=== PATIENT | female | born 1975 | race Caucasian/White ===

== ENCOUNTER 2019-05-27 16:14 | Emergency (ER) | payer MEDICAID, SELFPAY ==
[2019-05-27 16:23] VITALS: BP 144/93; PULSE 99; RESP 18; TEMP 36.2; O2SAT 96
--- NOTE | 2019-05-27 19:46 | ED.ANXIETY ---
HPI - Anxiety <AXEL Gallagher - Last Filed: 05/27/19 22:25> General Chief Complaint: Anxiety Stated Complaint: states blood pressure is high,under stress Time Seen by Provider: 05/27/19 19:35 Source: patient Mode of arrival: Ambulatory History of Present Illness HPI narrative: 43-year-old female presents to the the emergency department complaining of sudden onset of anxiety, shortness of breath and increased heart rate. Patient states this happened about a week ago. She states she has in her written episodes of summer feelings throughout the week. She reports it feels like her heart rate is beating faster when she walks around. Patient states she took her blood pressure in [place] and noticed that it was 141/99 and heart rate of 115 today. She has history of anxiety but has not had worsening symptoms for few years. She denies a history of any panic attacks. Patient denies history of asthma, blood clots, recent long trips, or ever needing to take blood thinners. Patient denies abdominal pain, nausea, vomiting, diarrhea, chest pain, dizziness, vision changes, or other concerns. Related Data Home Medications Medication Instructions Recorded Confirmed gabapentin 400 mg PO TID 05/27/19 05/27/19 ibuprofen 600 mg PO TID 05/27/19 05/27/19 omeprazole 20 mg PO DAILY 05/27/19 05/27/19 quetiapine 100 mg PO BEDTIME 05/27/19 05/27/19 Previous Rx's Medication Instructions Recorded hydroxyzine HCl 25 mg PO QID PRN #30 tab 05/27/19 Allergies Allergy/AdvReac Type Severity Reaction Status Date / Time No Known Drug Allergies Allergy Verified 05/27/19 16:29 Review of Systems <AXEL Gallagher - Last Filed: 05/27/19 22:25> Review of Systems Narrative: REVIEW OF SYSTEMS: GENERAL: Denies fever or chills. HENT: No head trauma, hearing loss or sore throat. EYES: No loss of vision, double vision, eye pain, or irritation. CARDIOVASCULAR: Complains of palpitations, see HPI. RESPIRATORY: Complains of shortness of breath, see HPI. GASTROINTESTINAL: No nausea, vomiting, diarrhea, or constipation. GENITOURINARY: No flank pain or dysuria. MUSCULOSKELETAL: No pain, weakness, or deformities. INTEGUMENTARY: No rash, lesions, or pruritus. NEURO: No numbness, tingling, memory loss, or confusion. PSYCH: No behavior or mood changes. Patient History <AXEL Gallagher - Last Filed: 05/27/19 22:25> Medical History Anxiety (Acute) Social History Smoking Status: Current every day smoker Smoking Status: Current every day smoker tobacco type: cigarettes alcohol intake frequency: 0-2 drinks per day Substance Use Type: does not use Exam <AXEL Gallagher - Last Filed: 05/27/19 22:25> Initial Vital Signs Initial Vital Signs: Vital Signs Temperature 97.1 F L 05/27/19 16:23 Pulse Rate 99 H 05/27/19 16:23 Respiratory Rate 18 05/27/19 16:23 Blood Pressure 144/93 H 05/27/19 16:23 Pulse Oximetry 96 05/27/19 16:23 PHYSICAL EXAMINATION: GENERAL: Well groomed, alert, and cooperative. Answers questions promptly and appropriately. Vital signs noted. HENT: Normocephalic, atraumatic. Ear canals patent. Oral mucosa is pink and moist. EYES: Conjunctiva pink, sclera white, no periorbital swelling. CHEST: Normal to inspection and without deformities. CARDIOVASCULAR: S1 and S2 sounds normal. Regular rate and rhythm, no murmurs, clicks, or bruits. No pedal edema. RESPIRATORY: Normal respiratory rate, trachea midline, airway patent. No stridor, nasal flaring or accessory muscle use. Lungs are clear in all benitez without wheeze, rhonchi, or crackles. No cough exhibited. GASTROINTESTINAL: Bowel sounds normoactive. Abdomen is soft and non-tender. No organomegaly. MUSCULOSKELETAL: Normal gait and coordination. Equal tone and mass bilaterally. EXTREMITIES: CMS intact. Moves all extremities. SKIN: Warm, dry, soft, appropriate color for ethnicity. No lesions, rashes, or wounds. NEURO: Alert and Oriented X 3. Good coordination. No ataxia, or sensory deficits, or cognitive issues. PSYCH: Patient did not appear especially anxious during exam. <Cami Myrick DO - Last Filed: 05/28/19 06:03> Initial Vital Signs Initial Vital Signs: Vital Signs Temperature 97.1 F L 05/27/19 16:23 Pulse Rate 99 H 05/27/19 16:23 Respiratory Rate 18 05/27/19 16:23 Blood Pressure 144/93 H 05/27/19 16:23 Pulse Oximetry 96 05/27/19 16:23 Course <AXEL Gallagher - Last Filed: 05/27/19 22:25> Course Course Narrative: Patient initially had a heart rate of 105 and had a oxygen saturation of 90% during examination. There was increased concern for pulmonary embolism. After administration of fluids, patient's heart rate decreased to 95, patient was able to ambulate around the room with an oxygen saturation of 96% before discharge. Patient states she was feeling much better after administration of fluids. We discussed return precautions in extensive detail. Patient was given hydroxyzine, she was encouraged to follow up with her primary care provider for discussion of further management of anxiety. Orders Ordered: Discontinued Medications Sodium Chloride (Normal Saline 0.9%) 1,000 mls @ 1,000 mls/hr IV BOLUS ONE Stop: 05/27/19 20:46 Last Infusion: 05/27/19 22:12 Dose: 0 mls/hr Documented by: Admin: 05/27/19 20:53 Dose: 1,000 mls/hr Documented by: PARISH Consultations Consultation #1: Patient staffed with Dr. Myrick Vital Signs Vital signs: Vital Signs - 8 hr 05/27/19 22:12 Pulse Rate 95 H Respiratory Rate 26 H Blood Pressure [Left Arm] 133/91 H <Cami Myrick DO - Last Filed: 05/28/19 06:03> Orders Ordered: Discontinued Medications Sodium Chloride (Normal Saline 0.9%) 1,000 mls @ 1,000 mls/hr IV BOLUS ONE Stop: 05/27/19 20:46 Last Infusion: 05/27/19 22:12 Dose: 0 mls/hr Documented by: Admin: 05/27/19 20:53 Dose: 1,000 mls/hr Documented by: PARISH Vital Signs Vital signs: Vital Signs - 8 hr 05/27/19 22:12 Pulse Rate 95 H Respiratory Rate 26 H Blood Pressure [Left Arm] 133/91 H MDM - Anxiety <Ora LopezAXEL - Last Filed: 05/27/19 22:25> Medical Records Attestation: I reviewed the patient's medical records. Lab Data Attestation: I reviewed the patient's lab results. Result diagrams: 05/27/19 20:12 05/27/19 20:12 Labs: Lab Results 05/27/19 05/27/19 Range/Units 20:12 20:12 WBC 9.4 (4.5-11.0) X10^3/uL RBC 4.98 (4.0-5.2) X10^6/uL Hgb 12.9 (12.0-16.0) g/dL Hct 38.7 (36-46) % MCV 77.7 L (80-100) fL MCH 26.0 (26-34) PG MCHC 33.4 (30-36) % RDW 14.2 (11.6-14.8) % Plt Count 246 (150-400) X10^3/uL Neut % (Auto) 59.1 (50-75) % Lymph % (Auto) 31.3 (25-40) % Perry % (Auto) 5.8 (3-14) % Eos % (Auto) 3.0 (2-4) % Baso % (Auto) 0.8 (0-2) % Neut # (Auto) 5600 (6211-8519) /uL Lymph # (Auto) 3000 (9383-0042) /uL Perry # (Auto) 500 (0-900) /uL Eos # (Auto) 300 (0-450) /uL Baso # (Auto) 100 (0-100) /uL Sodium 136 L (137-145) mmol/L Potassium 4.3 (3.4-5.1) mmol/L Chloride 99 (98-107) mmol/L Carbon Dioxide 27 (22-32) mmol/L BUN 15 (7-17) mg/dL Creatinine 0.60 (0.52-1.04) mg/dL Estimated GFR > 60.0 (>60) mL/min BUN/Creatinine Ratio 25.0 H (6-22) Glucose 86 (70-100) mg/dL Calcium 9.3 (8.4-10.2) mg/dL Total Bilirubin 0.5 (0.2-1.3) mg/dL AST 29 (14-36) IU/L ALT 17 (<35) IU/L Alkaline Phosphatase 116 (38-126) U/L Total Creatine Kinase 56 (30-135) U/L CK-MB (CK-2) TNP CK-MB (CK-2) Rel Index TNP Troponin I < 0.012 (0.01-0.034) ng/mL Total Protein 8.5 H (6.3-8.2) g/dL Albumin 4.5 (3.5-5.0) g/dL Globulin 4.0 (1.7-4.1) g/dL Albumin/Globulin Ratio 1.1 (1.0-2.8) Urine Dip Bedside Urine Glucose Negative Bedside Urine Bilirubin - Negative Bedside Urine Ketone - Negative Urine Specific Norphlet 1.025 Bedside Urine Occult Blood - Negative Bedside Urine pH 6.0 Bedside Urine Protein +/- 15 Bedside Urine Urobilinogen - Negative Bedside Urine Nitrite - Negative Bedside Urine Leukocytes - Negative Esterase Imaging Data CTA: Radiologist's Impression: [address] [address] [address] Scan Report Signed Patient: Ashli Serrano [facility]#: [id number] : 1975Acct:[id number] Age/Sex: 43 / FDate of Service: 05/27/19 Loc: ED Accession Number: [id number] Procedure: CT angio chest PE protocol Ordering Provider: Ora Lopez PROCEDURE: CT ANGIO CHEST PE PROTOCOL INDICATIONS: r/o PE, SOB, low sat, tachycardia TECHNIQUE: After the administration of intravenous contrast, 2 mm thick sections acquired from the pulmonary apices to the posterior costophrenic angles. 3-dimensional maximum intensity projection (MIP) coronal and sagittal reformats were then acquired through the thorax. For radiation dose reduction, the following was used: automated exposure control, adjustment of mA and/or kV according to patient size. COMPARISON: [facility], CR, XR CHEST 1V, 05/27/2019, 19:59. FINDINGS: Image quality: Good. Pulmonary arteries: Pulmonary arteries are normal in size, and demonstrate no intraluminal filling defects to suggest central pulmonary embolism. Lungs and pleura: Minimal dependent ground glass opacity which has the appearance of atelectasis. No pleural effusions or pneumothorax. Central and peripheral airways are patent. Mediastinum: Heart size is normal, without pericardial effusion. No mediastinal or hilar adenopathy. Thoracic aorta is normal in caliber and enhancement. Esophagus is normal in caliber, without hiatal hernia. Bones and chest wall: No suspicious bony lesions. Ribs and thoracic spine appear intact throughout. Thyroid gland is unremarkable. No axillary or supraclavicular adenopathy. Abdomen: Visualized upper abdominal solid organs appear normal in the early arterial phase of enhancement. Spleen appears prominent. IMPRESSION: 1. No central pulmonary embolism. 2. No significant acute airspace opacity. Dictated by: Colby Mcpherson M.D. on 05/27/2019 at 21:45 Approved by: Colby Mcpherson M.D. on 05/27/2019 at 21:50 Chest x-ray: Radiologist's Impression: [address] [place] [id number] XRay Report Signed Patient: Ashli Serrano [facility]#: [id number] : 1975Acct:[id number] Age/Sex: 43 / FDate of Service: 05/27/19 Loc: ED Accession Number: [id number] Procedure: XR chest 1V Ordering Provider: Ora Lopez PROCEDURE: XR CHEST 1V INDICATIONS: SOB TECHNIQUE: One view of the chest was acquired. COMPARISON: None. FINDINGS: Surgical changes and devices: None. Lungs and pleura: Lungs are clear. No pleural effusions or pneumothorax. Mediastinum: Mediastinal contours appear normal. Heart size is normal. Bones and chest wall: No suspicious bony lesions. Overlying soft tissues appear unremarkable. IMPRESSION: No acute cardiopulmonary abnormality. Dictated by: Colby Mcpherson M.D. on 05/27/2019 at 20:38 Approved by: Colby Mcpherson M.D. on 05/27/2019 at 20:40 ECG Data Interpretation: EKG given to Dr. Mims per protocol. Sinus rhythm a a, rate under, W[place] interval 133, QTC 427. No ST elevation or ST depression. No T-wave abnormality. No ectopy. MDM Narrative Medical decision making narrative: 43-year-old female presents to the emergency department complaining of increased heart rate, palpitation, and shortness of breath. Patient has a history of anxiety but has not had any panic attacks, she reports that this has started suddenly. However, she also states she has been under lot of stress lately. Differential included PE due to episodes of tachycardia and low oxygen saturation, however, this is less likely due to low risk factors in history and negative CT angio, as well as improved symptoms after her stay in the emergency department. Less likely cardiac etiology due to normal EKG, negative troponin, and x-ray without any acute changes. Less likely infectious etiology due to lack of systemic symptoms such as fever or cough, additionally, patient had a negative x-ray and negative CT. Differential also includes anxiety, this you we need to do is most likely due to negative workup and resolution of symptoms. Strict return precautions given and follow-up instructions discussed. Patient agreed to plan of care verbalized understanding. <Cami Myrick, - Last Filed: 05/28/19 06:03> Lab Data Attestation: I reviewed the patient's lab results. Labs: Lab Results 05/27/19 05/27/19 Range/Units 20:12 20:12 WBC 9.4 (4.5-11.0) X10^3/uL RBC 4.98 (4.0-5.2) X10^6/uL Hgb 12.9 (12.0-16.0) g/dL Hct 38.7 (36-46) % MCV 77.7 L (80-100) fL MCH 26.0 (26-34) PG MCHC 33.4 (30-36) % RDW 14.2 (11.6-14.8) % Plt Count 246 (150-400) X10^3/uL Neut % (Auto) 59.1 (50-75) % Lymph % (Auto) 31.3 (25-40) % Perry % (Auto) 5.8 (3-14) % Eos % (Auto) 3.0 (2-4) % Baso % (Auto) 0.8 (0-2) % Neut # (Auto) 5600 (7846-2831) /uL Lymph # (Auto) 3000 (3768-6144) /uL Perry # (Auto) 500 (0-900) /uL Eos # (Auto) 300 (0-450) /uL Baso # (Auto) 100 (0-100) /uL Sodium 136 L (137-145) mmol/L Potassium 4.3 (3.4-5.1) mmol/L Chloride 99 (98-107) mmol/L Carbon Dioxide 27 (22-32) mmol/L BUN 15 (7-17) mg/dL Creatinine 0.60 (0.52-1.04) mg/dL Estimated GFR > 60.0 (>60) mL/min BUN/Creatinine Ratio 25.0 H (6-22) Glucose 86 (70-100) mg/dL Calcium 9.3 (8.4-10.2) mg/dL Total Bilirubin 0.5 (0.2-1.3) mg/dL AST 29 (14-36) IU/L ALT 17 (<35) IU/L Alkaline Phosphatase 116 (38-126) U/L Total Creatine Kinase 56 (30-135) U/L CK-MB (CK-2) TNP CK-MB (CK-2) Rel Index TNP Troponin I < 0.012 (0.01-0.034) ng/mL Total Protein 8.5 H (6.3-8.2) g/dL Albumin 4.5 (3.5-5.0) g/dL Globulin 4.0 (1.7-4.1) g/dL Albumin/Globulin Ratio 1.1 (1.0-2.8) Urine Dip Bedside Urine Glucose Negative Bedside Urine Bilirubin - Negative Bedside Urine Ketone - Negative Urine Specific Norphlet 1.025 Bedside Urine Occult Blood - Negative Bedside Urine pH 6.0 Bedside Urine Protein +/- 15 Bedside Urine Urobilinogen - Negative Bedside Urine Nitrite - Negative Bedside Urine Leukocytes - Negative Esterase MDM Narrative Medical decision making narrative: Discharge Plan Departure Patient Disposition: Home Clinical Impression: Acute anxiety, Heart palpitations Discharge Date/Time: 05/27/19 22:19 Instructions: DI for Anxiety -- Adult Activity Restrictions/Additional Instructions: Thank you for entrusting me with your care today. As discussed, your x-ray and CT is negative for pneumonia or blood clots. Your laboratory work is within normal limits. Your symptoms are most likely caused by anxiety. I have given you a medication called hydroxyzine this will help with acute anxiety attacks. However, this will make you sleepy so do not drive with this medication. Follow up with your primary care provider in 1-2 weeks for further discussion about long-term management of anxiety. I recommend having an outlet for your anxiety such as exercise, crusting, or knitting, or etc. As well as establishing a therapist. Return to the emergency department for any new or worsening symptoms. Prescriptions: New hydroxyzine HCl 25 mg tablet 25 mg PO QID PRN (Reason: anxiety) Qty: 30 RF: 0 No Action gabapentin 400 mg Capsule 400 mg PO TID RF: 0 omeprazole 20 mg Capsule,Delayed Release(Dr/Ec) 20 mg PO DAILY RF: 0 quetiapine 100 mg Tablet 100 mg PO BEDTIME RF: 0 ibuprofen 600 mg Tablet 600 mg PO TID RF: 0 Referrals: Rosalva Smalls MD [Primary Care Provider] -
--- NOTE | 2019-05-27 20:16 | DI.CT.S_ITS ---
PROCEDURE: CT ANGIO CHEST PE PROTOCOL INDICATIONS: r/o PE, SOB, low sat, tachycardia TECHNIQUE: After the administration of intravenous contrast, 2 mm thick sections acquired from the pulmonary apices to the posterior costophrenic angles. 3-dimensional maximum intensity projection (MIP) coronal and sagittal reformats were then acquired through the thorax. For radiation dose reduction, the following was used: automated exposure control, adjustment of mA and/or kV according to patient size. COMPARISON: [facility], CR, XR CHEST 1V, 05/27/2019, 19:59. FINDINGS: Image quality: Good. Pulmonary arteries: Pulmonary arteries are normal in size, and demonstrate no intraluminal filling defects to suggest central pulmonary embolism. Lungs and pleura: Minimal dependent ground glass opacity which has the appearance of atelectasis. No pleural effusions or pneumothorax. Central and peripheral airways are patent. Mediastinum: Heart size is normal, without pericardial effusion. No mediastinal or hilar adenopathy. Thoracic aorta is normal in caliber and enhancement. Esophagus is normal in caliber, without hiatal hernia. Bones and chest wall: No suspicious bony lesions. Ribs and thoracic spine appear intact throughout. Thyroid gland is unremarkable. No axillary or supraclavicular adenopathy. Abdomen: Visualized upper abdominal solid organs appear normal in the early arterial phase of enhancement. Spleen appears prominent. IMPRESSION: 1. No central pulmonary embolism. 2. No significant acute airspace opacity. Dictated by: Colby Mcpherson M.D. on 05/27/2019 at 21:45 Approved by: Colby Mcpherson M.D. on 05/27/2019 at 21:50
[2019-05-27 20:20] LABS: Add Manual Diff / Slide Review NO; Basophils Absolute Auto 100 /uL (0-100); Basophils Percent Auto 0.8 % (0-2); Eosinophils Absolute Auto 300 /uL (0-450); Hematocrit 38.7 % (36-46); Hemoglobin 12.9 g/dL (12.0-16.0); Lymphocytes Absolute Auto 3000 /uL (1100-4500); Lymphocytes Percent Auto 31.3 % (25-40); Mean Corpuscular HGB Conc 33.4 % (30-36); Mean Corpuscular Volume 77.7 fL (80-100); Monocytes Absolute Auto 500 /uL (0-900); Monocytes Percent Auto 5.8 % (3-14); Neutrophils Absolute Auto 5600 /uL (1500-7000); Neutrophils Percent Auto 59.1 % (50-75); Platelet Count 246 X10^3/uL (150-400); Red Blood Cell Count 4.98 X10^6/uL (4.0-5.2); Red Cell Distribution Width 14.2 % (11.6-14.8); White Blood Cell Count 9.4 X10^3/uL (4.5-11.0)
[2019-05-27 20:21] VITALS: BP 117/80; PULSE 101; RESP 18; O2SAT 99
[2019-05-27 20:30] LABS: Alanine Aminotransferase 17 IU/L (<35); Albumin 4.5 g/dL (3.5-5.0); Albumin Globulin Ratio 1.1 (1.0-2.8); Alkaline Phosphatase 116 U/L (38-126); Aspartate Aminotransferase 29 IU/L (14-36); Bilirubin Total 0.5 mg/dL (0.2-1.3); Blood Urea Nitrogen 15 mg/dL (7-17); Calcium 9.3 mg/dL (8.4-10.2); Carbon Dioxide 27 mmol/L (22-32); Chloride 99 mmol/L (98-107); Creatine Kinase 56 U/L (30-135); Estimated Glomerular Filt Rate > 60.0 mL/min (>60); Glucose 86 mg/dL (70-100); Potassium 4.3 mmol/L (3.4-5.1); Sodium 136 mmol/L (137-145); Total Protein 8.5 g/dL (6.3-8.2)
[2019-05-27 20:34] LABS: HEMOLYSIS 77 (0-50)
[2019-05-27 20:42] LABS: Troponin I < 0.012 ng/mL (0.01-0.034)
[2019-05-27] MEDS: SODIUM CHLORIDE 0.9% 1,000 ML 1000 ML IV (20:53)
[2019-05-27 22:12] VITALS: BP 133/91; PULSE 95; RESP 26
== END 2019-05-27 22:19 | disposition home or self-care (01) ==
PROVIDERS: Emergency Provider Nurse Practitioner; PCP Family Medicine
DX: F41.9 Anxiety disorder, unspecified (principal); R00.2 Palpitations; R00.0 Tachycardia, unspecified; R06.02 Shortness of breath
CPT/HCPCS: 36415; 71045; 71275; 80053; 81003; 82550; 84484; 85025; 93005; 96360; 99284; 99285

== ENCOUNTER 2019-11-22 09:29 | Emergency (ER) | payer MEDICAID, SELFPAY ==
[2019-11-22] VITALS (18 sets, daily range): BP systolic 95–110; BP diastolic 54–72; PULSE 92–124; RESP 18–50; TEMP 36.4; O2SAT 92–100
--- NOTE | 2019-11-22 09:43 | DI.RAD.S_ITS ---
PROCEDURE: XR CHEST 1V INDICATIONS: flu-like symptoms TECHNIQUE: One view of the chest was acquired. COMPARISON: [facility], CR, XR CHEST 1V, 05/27/2019, 19:59. FINDINGS: Surgical changes and devices: None. Lungs and pleura: Lungs are clear. No pleural effusions or pneumothorax. Mediastinum: Mediastinal contours appear normal. Heart size is normal. Bones and chest wall: No suspicious bony lesions. Overlying soft tissues appear unremarkable. IMPRESSION: No acute cardiopulmonary disease. Dictated by: Kate Adler M.D. on 11/22/2019 at 10:52 Approved by: Kate Adler M.D. on 11/22/2019 at 10:53
[2019-11-22 10:43] LABS: Lactate (Lactic Acid) 1.4 mmol/L (0.7-2.1)
--- NOTE | 2019-11-22 10:44 | PC.NURSE ---
Complaint as per triage note:Pt is now a/o x 4. BS clear and equal. Denies recent fever / chills but does state she has felt intermittent shortness of breath/ body feeling heavy when she is walking up stairs x 24 hours. c/o body aches that are not normal for her. Denies nausea / vomiting. Dizzyness is resolved after 1 liter of NS fluid. Pt has been in methadone program x 1 year. + smoker 1-2 cigarets / day w/ nicotine patch in place. Nicotine patch has recently been decreased and is not new for her.
--- NOTE | 2019-11-22 10:49 | ED.SOB ---
HPI - SOB/Dyspnea General Chief Complaint: Shortness of Breath/Dyspnea Stated Complaint: Chest Pain Time Seen by Provider: 11/22/19 09:41 Source: patient and EMS Mode of arrival: EMS Limitations: no limitations History of Present Illness HPI Narrative: Patient is a 44-year-old female who presents from the rehab clinc with dizziness lightheadedness and shortness of breath. She says it started last evening she actually felt like her heart was beating in her chest quite a lot. She feels short of breath when she walks she overall has extreme fatigue all over her body and muscle aches. She denies any cough or fever. She was at rehab clinic today when she was found to be dizzy with a systolic blood pressure in the 90s and heart rate in 120, that has improved since she has been in the emergency department and overall her symptoms she says have also improved. She lives in a shared household with 5 other family and is unable to quarantine. Related Data Home Medications Medication Instructions Recorded Confirmed omeprazole 20 mg PO DAILY 05/27/19 11/22/19 quetiapine 100 mg PO BEDTIME 05/27/19 11/22/19 atorvastatin [Lipitor] 20 mg PO DAILY 11/22/19 11/22/19 cyclobenzaprine 10 mg PO TID PRN 11/22/19 11/22/19 gabapentin 800 mg PO TID 11/22/19 11/22/19 ibuprofen 800 mg PO TID PRN 11/22/19 11/22/19 lisinopril 5 mg PO DAILY 11/22/19 11/22/19 nicotine 1 patch TOPICAL DAILY 11/22/19 11/22/19 Previous Rx's Medication Instructions Recorded hydroxyzine HCl 25 mg PO QID PRN #30 tab 05/27/19 Allergies Allergy/AdvReac Type Severity Reaction Status Date / Time No Known Drug Allergies Allergy Verified 11/22/19 09:42 Review of Systems Constitutional Constitutional: Reports body ache(s), Denies chills, Reports fatigue and Denies frequent falls Eyes Eyes: Denies change in vision, Denies eye discharge, Denies irritation and Denies loss of vision ENT Ears, Nose, Mouth, and Throat: Denies change in voice, Denies neck pain and Denies sore throat Cardiovascular Cardiovascular: Denies chest pain, Reports lightheadedness and Reports dyspnea on exertion Respiratory Respiratory: Denies chest congestion, Denies cough, Denies pain with cough and Reports dyspnea on exertion Gastrointestinal Gastrointestinal: Denies abdominal pain, Denies change in bowel habits, Denies diarrhea, Denies nausea and Denies vomiting Musculoskeletal Musculoskeletal: Denies neck pain Integumentary/Breasts Skin/Breast: Denies pruritus, Denies erythema, Denies rash and Denies wounds Neurologic Neurologic: Denies frequent falls and Denies loss of vision Endocrine Endocrine: Reports fatigue Patient History Medical History Anxiety (Acute) GERD (gastroesophageal reflux disease) (Acute) Methadone maintenance therapy patient (Acute) Social History Smoking Status: Current every day smoker Smoking Status: Current every day smoker tobacco type: cigarettes alcohol intake frequency: 0-2 drinks per day Substance Use Type: former substance user Exam Initial Vital Signs Initial Vital Signs: Vital Signs Temperature 97.5 F L 11/22/19 09:30 Pulse Rate 99 H 11/22/19 09:30 Respiratory Rate 22 11/22/19 09:30 Blood Pressure 100/56 L 11/22/19 09:30 Pulse Oximetry 100 11/22/19 09:30 GENERAL: Well-appearing, well-nourished and in no acute distress. HEENT: Head atraumatic,EOMI, pupils reactive, face symmetric, moist mucous membranes CARDIOVASCULAR: Regular rate and rhythm without murmurs, rubs or gallops. RESPIRATORY: Breath sounds equal bilaterally, no wheezes rales or rhonchi. ABDOMEN: Soft, nontender. Normoactive bowel sounds all 4 quadrants. No guarding or rebound. EXTREMITIES: Normal range of motion, no clubbing or edema. Neurovascularly intact NEUROLOGICAL: Alert and oriented x4.Normal gait and speech. Cranial nerves II through XII grossly intact. SKIN: Warm, dry, no laceration, no petechiae, no rashes or lesions. Scores PERC Score Age greater than or equal to 50 years: No Heart rate greater than or equal to 100 bpm: Yes Room Air O2 Sat less than 95%: No Unilateral leg swelling: No Recent trauma or surgery: No Hemoptysis: No Prior PE or DVT: No Hormone Use: No Total PERC Score: 1 Course Orders Ordered: ED Orders 11/22/19 10:25 Lactate (Lactic Acid) Stat 11/22/19 10:50 Blood Culture Stat C-Reactive Protein Quant Stat Complete Blood Count AUTO DIFF Stat Comprehensive Metabolic Panel Stat D Dimer Stat Ferritin Stat Lactate Dehydrogenase Stat NT-proBNP (BNP-Adult 18+) Stat Procalcitonin Stat Troponin & CK Cardiac Panel Stat Discontinued Medications Sodium Chloride (Normal Saline 0.9%) 1,000 mls @ 1,000 mls/hr IV BOLUS ONE Stop: 11/22/19 13:05 Last Admin: 11/22/19 12:10 Dose: 1,000 mls/hr Documented by: MORENO Vital Signs Vital signs: Vital Signs - 8 hr 11/22/19 11:00 11/22/19 11:15 11/22/19 11:24 Pulse Rate 92 H 93 H 96 H Pulse Rate [Orthostatic Lying] Pulse Rate [Orthostatic Sitting] Pulse Rate [Orthostatic Standing] Respiratory Rate 20 18 28 H Blood Pressure 108/64 Blood Pressure [Orthostatic Lying] Blood Pressure [Orthostatic Sitting] Blood Pressure [Orthostatic Standing] Pulse Oximetry 95 94 94 11/22/19 11:30 11/22/19 11:45 11/22/19 11:50 Pulse Rate 92 H 93 H 104 H Pulse Rate [Orthostatic Lying] 103 H Pulse Rate [Orthostatic Sitting] 100 H Pulse Rate [Orthostatic Standing] 111 H Respiratory Rate 27 H 20 18 Blood Pressure 95/66 105/66 Blood Pressure [Orthostatic Lying] 105/66 Blood Pressure [Orthostatic Sitting] 108/70 Blood Pressure [Orthostatic Standing] 103/60 Pulse Oximetry 93 92 95 11/22/19 11:52 11/22/19 11:55 11/22/19 12:04 Pulse Rate 99 H 110 H 124 H Pulse Rate [Orthostatic Lying] Pulse Rate [Orthostatic Sitting] Pulse Rate [Orthostatic Standing] Respiratory Rate 25 H 35 H Blood Pressure 108/70 103/60 Blood Pressure [Orthostatic Lying] Blood Pressure [Orthostatic Sitting] Blood Pressure [Orthostatic Standing] Pulse Oximetry 95 96 97 11/22/19 12:05 11/22/19 12:30 11/22/19 12:31 Pulse Rate 119 H 97 H Pulse Rate [Orthostatic Lying] Pulse Rate [Orthostatic Sitting] Pulse Rate [Orthostatic Standing] Respiratory Rate 50 H 34 H Blood Pressure 101/63 103/72 Blood Pressure [Orthostatic Lying] Blood Pressure [Orthostatic Sitting] Blood Pressure [Orthostatic Standing] Pulse Oximetry 97 92 MDM - SOB/Dyspnea Lab Data Attestation: I reviewed the patient's lab results. Result diagrams: 11/22/19 10:50 11/22/19 10:50 Labs: Lab Results 11/22/19 11/22/19 11/22/19 Range/Units 10:25 10:25 10:25 WBC (4.5-11.0) X10^3/uL RBC (4.0-5.2) X10^6/uL Hgb (12.0-16.0) g/dL Hct (36-46) % MCV (80-100) fL MCH (26-34) PG MCHC (30-36) % RDW (11.6-14.8) % Plt Count (150-400) X10^3/uL Neut % (Auto) (50-75) % Lymph % (Auto) (25-40) % [place] % (Auto) (3-14) % Eos % (Auto) (2-4) % Baso % (Auto) (0-2) % Neut # (Auto) (3284-8415) /uL Lymph # (Auto) (0067-0211) /uL [place] # (Auto) (0-900) /uL Eos # (Auto) (0-450) /uL Baso # (Auto) (0-100) /uL D-Dimer (<230) ng/mL Sodium (137-145) mmol/L Potassium (3.4-5.1) mmol/L Chloride (98-107) mmol/L Carbon Dioxide (22-32) mmol/L BUN (7-17) mg/dL Creatinine (0.52-1.04) mg/dL Estimated GFR (>60) mL/min BUN/Creatinine Ratio (6-22) Glucose (70-100) mg/dL Lactate 1.4 (0.7-2.1) mmol/L Calcium (8.4-10.2) mg/dL Ferritin (6-137) ng/mL Total Bilirubin (0.2-1.3) mg/dL AST (14-36) IU/L ALT (<35) IU/L Alkaline Phosphatase (38-126) U/L Lactate Dehydrogenase (313-618) U/L Total Creatine Kinase (30-135) U/L CK-MB (CK-2) CK-MB (CK-2) Rel Index Troponin I (0.01-0.034) ng/mL C-Reactive Protein (<1.0) mg/dL NT-Pro-B Natriuret Pep (<125) pg/mL Total Protein (6.3-8.2) g/dL Albumin (3.5-5.0) g/dL Globulin (1.7-4.1) g/dL Albumin/Globulin Ratio (1.0-2.8) Procalcitonin (<0.5) ng/mL COVID-19 PCR Cancelled Negative 11/22/19 11/22/19 11/22/19 Range/Units 10:50 10:50 10:50 WBC 8.6 (4.5-11.0) X10^3/uL RBC 4.62 (4.0-5.2) X10^6/uL Hgb 12.1 (12.0-16.0) g/dL Hct 35.9 L (36-46) % MCV 77.7 L (80-100) fL MCH 26.2 (26-34) PG MCHC 33.8 (30-36) % RDW 14.1 (11.6-14.8) % Plt Count 220 (150-400) X10^3/uL Neut % (Auto) 79.2 H (50-75) % Lymph % (Auto) 15.8 L (25-40) % [place] % (Auto) 4.5 (3-14) % Eos % (Auto) 0.3 L (2-4) % Baso % (Auto) 0.2 (0-2) % Neut # (Auto) 6800 (2122-2491) /uL Lymph # (Auto) 1400 (2122-4339) /uL [place] # (Auto) 400 (0-900) /uL Eos # (Auto) 0 (0-450) /uL Baso # (Auto) 0 (0-100) /uL D-Dimer < 200 (<230) ng/mL Sodium (137-145) mmol/L Potassium (3.4-5.1) mmol/L Chloride (98-107) mmol/L Carbon Dioxide (22-32) mmol/L BUN (7-17) mg/dL Creatinine (0.52-1.04) mg/dL Estimated GFR (>60) mL/min BUN/Creatinine Ratio (6-22) Glucose (70-100) mg/dL Lactate (0.7-2.1) mmol/L Calcium (8.4-10.2) mg/dL Ferritin (6-137) ng/mL Total Bilirubin (0.2-1.3) mg/dL AST (14-36) IU/L ALT (<35) IU/L Alkaline Phosphatase (38-126) U/L Lactate Dehydrogenase (313-618) U/L Total Creatine Kinase (30-135) U/L CK-MB (CK-2) CK-MB (CK-2) Rel Index Troponin I (0.01-0.034) ng/mL C-Reactive Protein (<1.0) mg/dL NT-Pro-B Natriuret Pep (<125) pg/mL Total Protein (6.3-8.2) g/dL Albumin (3.5-5.0) g/dL Globulin (1.7-4.1) g/dL Albumin/Globulin Ratio (1.0-2.8) Procalcitonin < 0.05 (<0.5) ng/mL COVID-19 PCR 11/21/ Range/Units 10:50 WBC (4.5-11.0) X10^3/uL RBC (4.0-5.2) X10^6/uL Hgb (12.0-16.0) g/dL Hct (36-46) % MCV (80-100) fL MCH (26-34) PG MCHC (30-36) % RDW (11.6-14.8) % Plt Count (150-400) X10^3/uL Neut % (Auto) (50-75) % Lymph % (Auto) (25-40) % [place] % (Auto) (3-14) % Eos % (Auto) (2-4) % Baso % (Auto) (0-2) % Neut # (Auto) (8898-8641) /uL Lymph # (Auto) (6630-6855) /uL [place] # (Auto) (0-900) /uL Eos # (Auto) (0-450) /uL Baso # (Auto) (0-100) /uL D-Dimer (<230) ng/mL Sodium 136 L (137-145) mmol/L Potassium 4.5 (3.4-5.1) mmol/L Chloride 103 (98-107) mmol/L Carbon Dioxide 24 (22-32) mmol/L BUN 17 (7-17) mg/dL Creatinine 1.35 H (0.52-1.04) mg/dL Estimated GFR 42.8 L (>60) mL/min BUN/Creatinine Ratio 12.6 (6-22) Glucose 106 H (70-100) mg/dL Lactate (0.7-2.1) mmol/L Calcium 9.3 (8.4-10.2) mg/dL Ferritin 23 (6-137) ng/mL Total Bilirubin 0.3 (0.2-1.3) mg/dL AST 21 (14-36) IU/L ALT 17 (<35) IU/L Alkaline Phosphatase 120 (38-126) U/L Lactate Dehydrogenase 330 (313-618) U/L Total Creatine Kinase 43 (30-135) U/L CK-MB (CK-2) TNP CK-MB (CK-2) Rel Index TNP Troponin I < 0.012 (0.01-0.034) ng/mL C-Reactive Protein 0.8 (<1.0) mg/dL NT-Pro-B Natriuret Pep 30 (<125) pg/mL Total Protein 7.7 (6.3-8.2) g/dL Albumin 4.2 (3.5-5.0) g/dL Globulin 3.5 (1.7-4.1) g/dL Albumin/Globulin Ratio 1.2 (1.0-2.8) Procalcitonin (<0.5) ng/mL COVID-19 PCR Imaging Data Chest x-ray: My Impression: PROCEDURE: XR CHEST 1V INDICATIONS: flu-like symptoms TECHNIQUE: One view of the chest was acquired. COMPARISON: [facility], CR, XR CHEST 1V, 05/27/2019, 19:59. FINDINGS: Surgical changes and devices: None. Lungs and pleura: Lungs are clear. No pleural effusions or pneumothorax. Mediastinum: Mediastinal contours appear normal. Heart size is normal. Bones and chest wall: No suspicious bony lesions. Overlying soft tissues appear unremarkable. IMPRESSION: No acute cardiopulmonary disease. Dictated by: Kate Adler M.D. on 11/22/2019 at 10:52 Approved by: Kate Adler M.D. on 11/22/2019 at 10:53 ECG Data Attestation: I personally reviewed and interpreted this ECG as follows: Prior ECG tracings: available for review Interpretation: Normal sinus rhythm rate 95 p.r. interval 145 QRS 90 Q OTC for [address] changes Q-wave noted in lead 3 similar to previous EKG PVCs also noted MDM Narrative Medical decision making narrative: Patient's COVID test is negative blood work is overall reassuring. Unclear cause of her shortness of breath however does not appear to be infectious D-dimer is negative, low risk for PE Discharge Plan Departure Patient Disposition: Home Clinical Impression: Dyspnea Qualifiers: Dyspnea type: unspecified Qualified Code(s): R06.00 - Dyspnea, unspecified Discharge Date/Time: 11/22/19 13:05 Instructions: DI for Viral Upper Respiratory Infection -- Adult Activity Restrictions/Additional Instructions: *You have been diagnosed with un known cause of shortness of breath, possible viral *What to do: COVID is negative today. Recommend rest and hydration *Continue to take medications as directed *Follow up with your primary care provider in 2-3 days *Return to ER if you should have increasing shortness of breath heart palpitations chest pain or any new, worsening or concerning symptoms Prescriptions: No Action omeprazole 20 mg Capsule,Delayed Release(Dr/Ec) 20 mg PO DAILY RF: 0 quetiapine 100 mg Tablet 100 mg PO BEDTIME RF: 0 hydroxyzine HCl 25 mg tablet 25 mg PO QID PRN (Reason: anxiety) Qty: 30 RF: 0 cyclobenzaprine 10 mg tablet 10 mg PO TID PRN (Reason: Spasms) RF: 0 nicotine 14 mg/24 hr patch 24 hour 1 patch topical DAILY RF: 0 ibuprofen 800 mg tablet 800 mg PO TID PRN (Reason: Pain (Scale Score 7-10)) RF: 0 gabapentin 800 mg tablet 800 mg PO TID RF: 0 atorvastatin [Lipitor] 20 mg Tablet 20 mg PO DAILY RF: 0 lisinopril 5 mg Tablet 5 mg PO DAILY RF: 0 Referrals: Rosalva Smalls MD [Primary Care Provider] -
[2019-11-22 11:00] LABS: Add Manual Diff / Slide Review NO; Basophils Absolute Auto 0 /uL (0-100); Basophils Percent Auto 0.2 % (0-2); Eosinophils Absolute Auto 0 /uL (0-450); Eosinophils Percent Auto 0.3 % (2-4); Hematocrit 35.9 % (36-46); Hemoglobin 12.1 g/dL (12.0-16.0); Lymphocytes Absolute Auto 1400 /uL (1100-4500); Lymphocytes Percent Auto 15.8 % (25-40); Mean Corpuscular HGB Conc 33.8 % (30-36); Mean Corpuscular Hemoglobin 26.2 PG (26-34); Mean Corpuscular Volume 77.7 fL (80-100); Monocytes Absolute Auto 400 /uL (0-900); Monocytes Percent Auto 4.5 % (3-14); Neutrophils Absolute Auto 6800 /uL (1500-7000); Neutrophils Percent Auto 79.2 % (50-75); Platelet Count 220 X10^3/uL (150-400); Red Blood Cell Count 4.62 X10^6/uL (4.0-5.2); Red Cell Distribution Width 14.1 % (11.6-14.8); White Blood Cell Count 8.6 X10^3/uL (4.5-11.0)
[2019-11-22 11:10] LABS: D Dimer < 200 ng/mL (<230)
[2019-11-22 11:15] LABS: Alanine Aminotransferase 17 IU/L (<35); Albumin 4.2 g/dL (3.5-5.0); Albumin Globulin Ratio 1.2 (1.0-2.8); Alkaline Phosphatase 120 U/L (38-126); Aspartate Aminotransferase 21 IU/L (14-36); BUN Creatinine Ratio 12.6 (6-22); Bilirubin Total 0.3 mg/dL (0.2-1.3); Blood Urea Nitrogen 17 mg/dL (7-17); C-Reactive Protein Quant 0.8 mg/dL (<1.0); Calcium 9.3 mg/dL (8.4-10.2); Carbon Dioxide 24 mmol/L (22-32); Chloride 103 mmol/L (98-107); Creatine Kinase 43 U/L (30-135); Estimated Glomerular Filt Rate 42.8 mL/min (>60); Globulin 3.5 g/dL (1.7-4.1); Glucose 106 mg/dL (70-100); Lactate Dehydrogenase 330 U/L (313-618); Potassium 4.5 mmol/L (3.4-5.1); Sodium 136 mmol/L (137-145); Total Protein 7.7 g/dL (6.3-8.2)
[2019-11-22 11:27] LABS: HEMOLYSIS 16 (0-50); NT-proBNP (BNP-Adult 18+) 30 pg/mL (<125); Troponin I < 0.012 ng/mL (0.01-0.034)
[2019-11-22 11:29] LABS: Procalcitonin < 0.05 ng/mL (<0.5)
[2019-11-22 11:50] LABS: Ferritin 23 ng/mL (6-137)
[2019-11-22 12:04] LABS: COVID19 -Nasal RAPID Negative (Negative)
[2019-11-22] MEDS: SODIUM CHLORIDE 0.9% 1,000 ML 1000 ML IV (12:10)
== END 2019-11-22 13:05 | disposition home or self-care (01) ==
PROVIDERS: Emergency Provider Emergency Medicine; PCP Family Medicine
DX: R06.00 Dyspnea, unspecified (principal); R07.9 Chest pain, unspecified; R68.89 Other general symptoms and signs
CPT/HCPCS: 36415; 71045; 80053; 82550; 82728; 83605; 83615; 83880; 84145; 84484; 85025; 85379; 86140; 87040; 87635; 93005; 99284; 99285